=== PATIENT | male | born 1980 | race Caucasian/White ===

== ENCOUNTER 2017-05-24 20:19 | Observation (INO) | payer OTHER ==
[~2017-05-24] VITALS: Ht 182.9 cm; Wt 95.3 kg
[2017-05-24] MEDS ORDERED: ROCURONIUM 50 MG/5 ML VIAL. ONE (21:56)
[2017-05-24] MEDS ORDERED: NEOSTIGMINE METHYLSULFATE 5 MG/5 ML SYRINGE. ONE (21:56)
[2017-05-24] MEDS ORDERED: MIDAZOLAM HCL/PF 2 MG/2 ML VIAL. ONE (21:56)
[2017-05-24] MEDS ORDERED: fentaNYL PF VIAL 100 MCG/2 ML VIAL ONE ×2 (21:56→23:28)
[2017-05-24] MEDS ORDERED: DEXAMETHASONE SOD PHOS 20 MG/5 ML VIAL. ONE (21:57)
[2017-05-24] MEDS ORDERED: PROPOFOL 20 ML IV ONE (21:57)
[2017-05-24] MEDS ORDERED: LIDOCAINE 2% PF Vial for OR 5 ML VIAL. ONE (21:57)
[2017-05-24] MEDS ORDERED: GLYCOPYRROLATE 1 MG/5 ML VIAL. ONE (21:57)
[2017-05-24] MEDS ORDERED: ONDANSETRON PF 4 MG/2 ML VIAL. ONE (21:57)
[2017-05-24] MEDS ORDERED: [UNRECOGNIZED DRUG - OTHER] IV ONE (22:00)
[2017-05-24] MEDS ORDERED: CEFOXITIN 2 GM IV ONE (22:00)
--- NOTE | 2017-05-24 22:04 | PDOC1 ---
History and Physical Date of Admission Date of Admission DATE: 05/24/17 TIME: 21:59 Identification/Chief Complaint Chief Complaint RLQ abd pain Problems: Source Source: Patient History of Present Illness History of Present Illness 36 yo M with 3 day history of gradually worsening abdominal pain described as pressure. It has localized in the RLQ. Associated sx of nausea and fever. No previous episode. He was seen in [facility] and transferred to [facility] for definitive care for appendicitis. Past Medical History Cardiovascular: No pertinent hx Past Surgical History Past Surgical History: Other (foot surgery on right side) Family History Family History: Other (crohn's in his father) Social History Smoke: No ALCOHOL: none Current Medications Current Medications Current Medications Cefoxitin Sodium 100 ml @ As Directed STK-MED ONCE IV ; Start 05/24/17 at 21: 54; Stop 05/24/17 at 21:55; Status DC Rocuronium [place] (Zemuron) 50 mg STK-MED ONCE .ROUTE ; Start 05/24/17 at 21: 56; Stop 05/24/17 at 21:57; Status DC Neostigmine Methylsulfate 5 mg STK-MED ONCE .ROUTE ; Start 05/24/17 at 21:56; Stop 05/24/17 at 21:57; Status DC Fentanyl Citrate (Fentanyl 2ml Vial) 100 mcg STK-MED ONCE .ROUTE ; Start at 21:56; Stop 05/24/17 at 21:57; Status DC Midazolam HCl (Versed) 2 mg STK-MED ONCE .ROUTE ; Start 05/24/17 at 21:56; Stop 05/24/17 at 21:57; Status DC Glycopyrrolate (Robinul) 1 mg STK-MED ONCE .ROUTE ; Start 05/24/17 at 21:57; Stop 05/24/17 at 21:58; Status DC Propofol 20 ml @ As Directed STK-MED ONCE IV ; Start 05/24/17 at 21:57; Stop 05/24/17 at 21:58; Status DC Lidocaine HCl (Lidocaine Pf 2% Vial) 5 ml STK-MED ONCE .ROUTE ; Start 05/24/17 at 21:57; Stop 05/24/17 at 21:58; Status DC Dexamethasone Sodium Phosphate (Decadron) 20 mg STK-MED ONCE .ROUTE ; Start at 21:57; Stop 05/24/17 at 21:58; Status DC Ondansetron HCl (Zofran) 4 mg STK-MED ONCE .ROUTE ; Start 05/24/17 at 21:57; Stop 05/24/17 at 21:58; Status DC Allergies Allergies: Coded Allergies: No Known Drug Allergies (Unverified , 05/24/17) ROS Gastrointestinal: Yes Nausea, Yes Abdominal Pain Physical Exam General: Alert, Oriented X3, Cooperative, No acute distress HEENT: Atraumatic, EOMI Lungs: Normal air movement Abdomen: Soft, Other (TTP RLQ) Rectal Exam: not examined Extremities: No clubbing, No cyanosis Skin: No rashes, No breakdown Neuro: Normal speech, Sensation intact Psych/Mental Status: Mental status NL, Mood NL Labs Labs WBC [address] [facility] c/w appendicitis VTE Prophylaxis Ordered VTE Prophylaxis Devices: Contraindicated VTE Pharmacological Prophylaxi: Contraindicated Assessment/Plan Assessment/Plan appendicitis TO Or for laparoscopic versus open appendectomy. R/b/A d/w pt and pt's . Risks, including but not limited to: bleeding, infection, damage to surrounding structures, risk of anesthesia, risk of open. They appear to understand, their questions are answered and they agree to proceed. JASPREET WASHINGTON MD May 24, 2017 22:04
[2017-05-24] MEDS ORDERED: BUPIVAC MPF-EPI 0.5%-1:200000 30 ML VIAL. ONE (22:17)
[2017-05-24] MEDS ORDERED: KETOROLAC 30 MG/ML INJ FOR OR. INJ ONE (22:25)
--- NOTE | 2017-05-24 22:54 | PDOC4 ---
OPERATIVE NOTE Date: Date: May 24, 2017 Pre-Op Diagnosis: Appendicitis Post-Op Diagnosis: same Procedure Performed: Laparoscopic appendectomy Surgeon: Pawan Washington Anesthesia Type: GETA plus 0.5% marcaine Blood Loss: 10 Specimans Obtained: appendix Findings: Indurated appendix, no evidence of perforation Complications: none Operative Note: After obtaining informed consent, patient was taken to the OR, induced under GETA and prepped in the usual fashion. 5 mm port placed left lower quadrant and suprapubic, with 12 port placed supraumbilical, all under laparoscopic guidance. Abdominal cavity was explored and unremarkable otherwise. Appendix noted to be thickened. Base of the appendix divided with general load JOSE ARMANDO. Mesoappendix divided with vascular load. Appendix placed in bag, delivered and sent to pathology for evaluation. Copious irrigation. No evidence of bleeding or other pathology. Ports removed without bleeding. Fascia repaired with 0 vicryl. Skin repaired with 4 0 monocryl. Dressing applied. Patient tolerated procedure well and sent to pathology in a stable condition. All counts were correct. No immediate complications. Wound class is 3. PAWAN WASHINGTON MD May 24, 2017 22:54
[2017-05-24] MEDS ORDERED: 0.9 % SODIUM CHLORIDE 10 ML DISP.SYRIN. IV PRN (23:00)
[2017-05-24] MEDS ORDERED: ONDANSETRON PF 4 MG/2 ML VIAL. IV PRN (23:00)
[2017-05-24] MEDS ORDERED: KETOROLAC 30 MG/ML INJ. IV PRN (23:00)
[2017-05-24] MEDS ORDERED: HYDROcodone/APAP 5/325MG 1 TAB TABLET PO PRN (23:00)
[2017-05-24] MEDS ORDERED: ENOXAPARIN 40 MG/0.4 ML SYRINGE. SQ SCH (23:00)
[2017-05-24] MEDS ORDERED: fentaNYL PF VIAL 100 MCG/2 ML VIAL IV PRN (23:30)
[2017-05-24] MEDS ORDERED: PROCHLORPERAZINE 10 MG/2 ML VIAL. IV PRN (23:30)
[2017-05-24] MEDS: fentaNYL PF VIAL 100 MCG/2 ML VIAL IV PRN ×2 (23:34→23:41)
[2017-05-24] MEDS: IV RINGERS,LACTATED 1000ML 1,000 ML IV SCH (23:35)
[2017-05-24 23:45] VITALS: BP 111/73
[2017-05-24 23:55] VITALS: BP 111/73
[2017-05-25] VITALS (8 sets, daily range): BP systolic 105–124; BP diastolic 57–76
[2017-05-25] MEDS: IV RINGERS,LACTATED 1000ML 1,000 ML IV SCH (08:06)
[2017-05-25] MEDS ORDERED: DOCUSATE SODIUM 100 MG CAPSULE. PO SCH (09:00)
[2017-05-25] MEDS ORDERED: ENOXAPARIN 40 MG/0.4 ML SYRINGE. SQ SCH (09:00)
--- NOTE | 2017-05-25 10:38 | PDOC3 ---
Discharge Summary Visit Information Date of Admission: May 24, 2017 Date of Discharge: May 25, 2017 Admitting Diagnosis: appendicitis Brief Hospital Course Allergies Allergies Coded Allergies Type Severity Reaction Last Updated Verified No Known Drug Allergies 05/24/17 No Vital Signs Vital Signs Date Time Temp Pulse Resp B/P (MAP) Pulse Ox O2 Delivery O2 Flow Rate FiO2 05/25/17 10:20 97 Room Air 2.0 05/25/17 07:00 97.2 79 16 111/76 (88) 97.2 Brief Hospital Course Mr. Arzate is a 36 old M who presented with RLQ abd pain. He was diagnosed with appendicitis and underwent uncomplicated laparoscopic appendectomy. POD #1 he was doing well and stable to d/c home. Discharge Information Condition at Discharge: Improved Follow Up: Weeks (2) Disposition/Orders: D/C to Home JASPREET WASHINGTON MD May 25, 2017 10:38
--- NOTE | 2017-05-25 13:24 | RAD ---
Single view chest 05/25/2017 Clinical indication: Referred right shoulder pain Comparison: None. Findings: Cardiac and mediastinal silhouettes are unremarkable. No pleural effusion, pneumothorax or focal consolidation. Impression: No acute cardiopulmonary abnormality.
--- NOTE | 2017-05-29 09:48 | PATHOLOGY ---
PATHOLOGY REPORT * * * * * * * * FINAL DIAGNOSIS: Appendix, laparoscopic appendectomy: - Acute appendicitis. COMMENT: There is no evidence of rupture. There is no evidence of malignancy. ([facility]^:pit; 05/29/2017) REPORT ELECTRONICALLY SIGNED BY: Kirt Chan M.D. DATE/TIME: 05/29/2017 09:48 * * * * * * * * GROSS PATHOLOGY: Received in formalin labeled "Hanny Pedro, appendix" and consists of a vermiform appendix measuring 8 cm in length with diameter ranging from 0.7 cm to 1.5 cm. The mesoappendix measures 4.0 x 2.0 x 1.7 cm. The serosa is glistening, pink, hemorrhagic, with vague exudate identified. The margin is inked. Sectioning reveals a possible microperforation, 1.6 cm distal to the margin. The lumen contains pasty brown fecal material. The mucosa is butler to focally hemorrhagic. No mucosal masses are identified. Loop Machine Operator sections are submitted as A1. ([facility]; 05/28/2017) INITIAL CPT CODE(S): A; 12884 Professional services [place] [address] Technical services performed by [facility] at [address] [place] [address] [address], [place] [address]. SPECIMEN(S) RECEIVED: A.Appendix CLINICAL HISTORY: Appendicitis PATIENT: HANNY PEDRO S /AGE: 208/04/1974 (Age: 42) PATIENT #: [id number] ALT CASE #: SPECIMEN COLLECTION DATE: 05/24/2017 SPECIMEN RECEIVED DATE: 05/27/2017 [facility] - [id number] [place] [address] - PHONE: [phone] * * * END OF REPORT * * *
== END 2017-05-25 14:03 | disposition home or self-care (01) ==
LOC: 4 NORTH 20:19 → EDSTATUS 21:45
PROVIDERS: ADMIT Surgery; ATTEND Surgery
DX: K35.80 Unspecified acute appendicitis (principal)
CPT/HCPCS: 44970; 71010; 96374; G0378; G0379; J0694; J1100; J1885; J2250; J2405; J2704; J2710; J3010; J3490; J7030; J7120; 88304; J2001